=== PATIENT | male | born 1980 | race Caucasian/White ===

== ENCOUNTER → 2025-04-02 09:35 | Outpatient (BNVA) | payer SELFPAY | PROVIDERS: PCP Nurse Practitioner Family; Visit Provider Nurse Practitioner Family | DX: I10 Essential (primary) hypertension (principal); K62.5 Hemorrhage of anus and rectum; Z13.220 Encounter for screening for lipoid disorders; R53.83 Other fatigue | CPT/HCPCS: 80053; 80061; 85025 ==